=== PATIENT | female | born 1960 | race Caucasian/White ===

== ENCOUNTER 2018-08-08 09:18 | Inpatient (IN) | payer OTHER ==
[2018-08-08] MEDS: ACETAMINOPHEN 325 MG TAB PO ×2 (10:03→19:16)
[2018-08-08 10:20] LABS: ADD MAN DIFF? NO
[2018-08-08 10:22] LABS: BASOPHIL # 0.1 10^3/ul (0.0-0.1); BASOPHILS % 1.2 % (0.0-2.0); EOSINOPHILS % 0.6 % (0.0-7.0); HEMATOCRIT 45.5 % (37.0-47.0); HEMOGLOBIN 15.1 g/dl (12.0-16.0); LYMPHOCYTES # 1.9 10^3/ul (0.8-2.9); LYMPHOCYTES % 36.6 % (15.0-51.0); MEAN CORPUSCULAR HEMOGLOBIN 27.9 pg (29.0-33.0); MEAN CORPUSCULAR HGB CONC 33.2 g/dl (32.0-37.0); MEAN CORPUSCULAR VOLUME 84.1 fl (82.0-101.0); MEAN PLATELET VOLUME 10.5 fl (7.4-10.4); MONOCYTE # 0.2 10^3/ul (0.3-0.9); MONOCYTES % 3.9 % (0.0-11.0); NEUTROPHIL # 2.9 10^3/ul (1.6-7.5); NEUTROPHILS % 56.5 % (39.0-77.0); PLATELET COUNT 275 10^3/UL (140-415); RED BLOOD COUNT 5.41 10^6/ul (4.20-5.40); RED CELL DISTRIBUTION WIDTH 12.5 % (11.5-14.5)
[2018-08-08 10:22] LABS: WHITE BLOOD COUNT 5.1 10^3/ul (4.8-10.8)
[2018-08-08 10:46] LABS: ANION GAP 13 (5-13); BLOOD UREA NITROGEN 17 mg/dl (7-20); CARBON DIOXIDE 27 mmol/L (21-31); CHLORIDE 104 mmol/L (97-110); CREATININE 0.62 mg/dl (0.44-1.00); Estimated GFR > 60 mL/min (>60); GLUCOSE 140 mg/dl (70-220); POTASSIUM 3.8 mmol/L (3.5-5.1); SODIUM 144 mmol/L (135-144)
[2018-08-08 10:52] LABS: ADD UMIC YES; UR ASCORBIC ACID NEGATIVE (NEGATIVE); UR BACTERIA FEW /HPF (NONE SEEN); UR BILIRUBIN (Dip) NEGATIVE (NEGATIVE); UR BLOOD (Dip) 2+ mg/dL (NEGATIVE); UR CLARITY CLEAR (CLEAR); UR COLOR YELLOW (YELLOW); UR GLUCOSE (Dip) NEGATIVE (NEGATIVE); UR KETONES (Dip) NEGATIVE (NEGATIVE); UR LEUKOCYTE ESTERASE (Dip) NEGATIVE Leu/ul (NEGATIVE); UR NITRITE (Dip) NEGATIVE (NEGATIVE); UR RBC 4 /HPF (0-5); UR TOTAL PROTEIN (Dip) NEGATIVE (NEGATIVE); UR UROBILINOGEN (Dip) NEGATIVE (NEGATIVE); UR WBC 2 /HPF (0-5)
[2018-08-08 11:34] LABS: INR 0.95; PROTIME 12.8 Sec (11.9-14.9)
[2018-08-08 11:35] LABS: PARTIAL THROMBOPLASTIN TIME 28.7 Sec (23.0-35.0)
[2018-08-08] MEDS: ASPIRIN 325 MG TAB PO (11:36)
[2018-08-08 11:37] LABS: CHOL/HDL RATIO 5.2 RATIO; HDL CHOLESTEROL 46 mg/dl (37-92); LDL CHOLESTEROL,CALCULATED 164 mg/dl; TRIGLYCERIDES 154 mg/dl (0-149)
[2018-08-08 11:37] LABS: CHOLESTEROL 241 mg/dl (100-200)
[2018-08-08 11:48] LABS: TROPONIN-I < 0.012 ng/ml (0.000-0.120)
[2018-08-08] MEDS ORDERED: NACL 0.9% 3 ML SYG IV (12:00)
[2018-08-08] MEDS ORDERED: DOCUSATE SODIUM 100 MG CAP PO (12:00)
[2018-08-08] MEDS ORDERED: ONDANSETRON 4 MG INJ IV ×2 (12:00)
[2018-08-08] MEDS ORDERED: MAGNESIUM HYDROXIDE 30ML CUP PO (12:00)
[2018-08-08] MEDS ORDERED: BISACODYL 10 MG SUPP PR (12:00)
[2018-08-08] MEDS ORDERED: ACETAMINOPHEN 325 MG TAB PO (12:00)
[2018-08-08] MEDS ORDERED: METOPROLOL 25 MG TAB PO (12:30)
[2018-08-08 12:35] LABS: AMPHETAMINE/METHAMPHETAMINE Negative (NEGATIVE); BARBITURATES Negative (NEGATIVE); BENZODIAZEPINES Negative (NEGATIVE); CANNABINOIDS Negative (NEGATIVE); COCAINE Negative (NEGATIVE); OPIATES Negative (NEGATIVE)
[2018-08-08] MEDS: SOD CHLORIDE 0.9% 100 ML (13:01)
[2018-08-08] MEDS: IOHEXOL 350MG/ML 50 ML BTL ×2 (13:02→13:03)
[2018-08-08] MEDS: IOHEXOL 100 ML (13:02)
[2018-08-08] MEDS: LOSARTAN 25 MG TAB PO ×2 (17:00→20:34)
[2018-08-08] MEDS: FAMOTIDINE 20 MG TAB PO (20:31)
[2018-08-08] MEDS: ATORVASTATIN 40 MG TAB PO (20:31)
[2018-08-08] MEDS: hydrALAzine 20 MG INJ IV (20:35)
[2018-08-09 06:00] LABS: ANION GAP 13 (5-13); BLOOD UREA NITROGEN 18 mg/dl (7-20); CALCIUM 9.6 mg/dl (8.4-10.2); CARBON DIOXIDE 26 mmol/L (21-31); CHLORIDE 105 mmol/L (97-110); Estimated GFR > 60 mL/min (>60); GLUCOSE 124 mg/dl (70-220); MAGNESIUM 1.9 mg/dl (1.7-2.5); POTASSIUM 3.6 mmol/L (3.5-5.1); SODIUM 144 mmol/L (135-144)
[2018-08-09] MEDS: FAMOTIDINE 20 MG TAB PO (08:40)
[2018-08-09] MEDS: ASPIRIN 81 MG TAB PO (08:40)
[2018-08-09] MEDS: LOSARTAN 25 MG TAB PO (08:40)
[2018-08-09] MEDS: ENOXAPARIN 40 MG/0.4 ML SYG SC (08:42)
[2018-08-09] MEDS: METOPROLOL 25 MG TAB PO (14:17)
[2018-08-09] MEDS ORDERED: LOSARTAN 25 MG TAB PO (21:00)
== END 2018-08-09 15:29 | disposition home or self-care (01) | DRG 66 ==
LOC: FTE 09:18 → 6WM 11:44
DX: I63.9 Cerebral infarction, unspecified (principal); I10 Essential (primary) hypertension; E78.5 Hyperlipidemia, unspecified
CPT/HCPCS: 70450; 70496; 70498; 70551; 71045; 80048; 80061; 80307; 81001; 83036; 83735; 84443; 84484; 85025; 85610; 85730; 93005; 93306; 97161; 99285-25

== ENCOUNTER 2019-03-24 03:04 | Emergency (ER) | payer OTHER ==
[2019-03-24 03:45] LABS: ADD MAN DIFF? NO
[2019-03-24 03:52] LABS: ADD UMIC YES; UR ASCORBIC ACID NEGATIVE (NEGATIVE); UR BILIRUBIN (Dip) NEGATIVE (NEGATIVE); UR BLOOD (Dip) 2+ mg/dL (NEGATIVE); UR CLARITY CLEAR (CLEAR); UR COLOR YELLOW (YELLOW); UR GLUCOSE (Dip) NEGATIVE (NEGATIVE); UR KETONES (Dip) 1+ mg/dL (NEGATIVE); UR LEUKOCYTE ESTERASE (Dip) NEGATIVE Leu/ul (NEGATIVE); UR NITRITE (Dip) NEGATIVE (NEGATIVE); UR RBC 33 /HPF (0-5); UR SPECIFIC GRAVITY (Dip) 1.016 (1.003-1.030); UR TOTAL PROTEIN (Dip) NEGATIVE (NEGATIVE); UR UROBILINOGEN (Dip) NEGATIVE (NEGATIVE); UR WBC 1 /HPF (0-5)
[2019-03-24 04:04] LABS: BASOPHIL # 0.1 10^3/ul (0.0-0.1); EOSINOPHILS # 0.1 10^3/ul (0.0-0.5); EOSINOPHILS % 0.6 % (0.0-7.0); HEMATOCRIT 44.1 % (37.0-47.0); HEMOGLOBIN 14.6 g/dl (12.0-16.0); LYMPHOCYTES # 2.6 10^3/ul (0.8-2.9); MEAN CORPUSCULAR HGB CONC 33.1 g/dl (32.0-37.0); MEAN CORPUSCULAR VOLUME 84.6 fl (82.0-101.0); MEAN PLATELET VOLUME 11.6 fl (7.4-10.4); MONOCYTE # 0.4 10^3/ul (0.3-0.9); MONOCYTES % 5.6 % (0.0-11.0); NEUTROPHIL # 4.6 10^3/ul (1.6-7.5); NEUTROPHILS % 58.4 % (39.0-77.0); PLATELET COUNT 269 10^3/UL (140-415); RED BLOOD COUNT 5.21 10^6/ul (4.20-5.40); RED CELL DISTRIBUTION WIDTH 12.8 % (11.5-14.5)
[2019-03-24 04:04] LABS: WHITE BLOOD COUNT 7.9 10^3/ul (4.8-10.8)
[2019-03-24 04:09] LABS: ALANINE AMINOTRANSFERASE 30 IU/L (13-69); ALBUMIN/GLOBULIN RATIO 1.47; ALKALINE PHOSPHATASE 44 IU/L (42-121); ANION GAP 15 (5-13); ASPARTATE AMINO TRANSFERASE 25 IU/L (15-46); BILIRUBIN,INDIRECT 1.1 mg/dl (0-1.1); BILIRUBIN,TOTAL 1.1 mg/dl (0.2-1.3); BLOOD UREA NITROGEN 26 mg/dl (7-20); CALCIUM 10.1 mg/dl (8.4-10.2); CARBON DIOXIDE 26 mmol/L (21-31); CHLORIDE 106 mmol/L (97-110); CREATININE 0.77 mg/dl (0.44-1.00); Estimated GFR > 60 mL/min (>60); GLUCOSE 138 mg/dl (70-220); POTASSIUM 3.9 mmol/L (3.5-5.1); SODIUM 147 mmol/L (135-144); TOTAL PROTEIN 8.4 g/dl (6.1-8.1)
[2019-03-24 04:21] LABS: TROPONIN-I < 0.012 ng/ml (0.000-0.120)
== END 2019-03-24 05:16 | disposition home or self-care (01) ==
LOC: FTE 03:04
DX: M25.531 Pain in right wrist (principal); I10 Essential (primary) hypertension; R53.1 Weakness; R06.02 Shortness of breath; M25.532 Pain in left wrist; Z79.82 Long term (current) use of aspirin
CPT/HCPCS: 36415; 71045; 80053; 81001; 84443; 84484; 85025; 93005; 99285-25